=== PATIENT | male | born 1965 | race Caucasian/White ===

== ENCOUNTER 2019-03-11 11:16 | Outpatient (REF) | payer BC, SELFPAY ==
[2019-03-11 12:54] LABS: HCT 45.4 % (40.0-50.0); HGB 15.4 g/dL (13.5-17.5); Mean Corp. HGB Concentration 33.9 g/dL (32.0-36.0); Mean Corpuscular Volume 88.5 fL (80-95); Mean Platelet Volume 10.4 fL (8.0-11.0); Platelet Count 219 x1000/uL (130-400); RBC 5.13 m/cumm (4.50-6.00); RBC Distribution Width 12.6 % (11.8-14.1); White Blood Cell Count 9.45 k/cumm (4.4-10.8)
[2019-03-11 13:06] LABS: ALT 44 U/L (12-78); AST 22 U/L (15-37); Albumin 3.9 g/dL (3.4-5.0); Alkaline Phosphatase 102 U/L (46-116); Anion Gap 8.6 mmol/L (3-11); BUN 12 mg/dL (7-18); Bilirubin, Total 0.7 mg/dL (0.2-1.0); CO2 27.4 mmol/L (21.0-32.0); CREATININE 0.86 mg/dL (0.70-1.30); Calcium 9.1 mg/dL (8.5-10.1); Calculated LDL 130 mg/dL; Chloride 105 mmol/L (98-107); Cholesterol 200 mg/dL (50-200); Glucose 96 mg/dL (70-100); HDL Cholesterol 38 mg/dL (40-60); Sodium 141 mmol/L (136-145); Total Protein 7.1 g/dL (6.4-8.2); Triglyceride 160 mg/dL (30-150)
== END 2019-03-11 11:36 ==
LOC: NCHCN 11:16
PROVIDERS: PCP Family Medicine; Visit Provider Family Medicine
DX: Z00.00 Encounter for general adult medical examination without abnormal findings (principal); Z13.220 Encounter for screening for lipoid disorders; K76.0 Fatty (change of) liver, not elsewhere classified; R10.9 Unspecified abdominal pain
CPT/HCPCS: 80053; 80061; 83721; 85027

== ENCOUNTER 2019-03-12 14:12 | Outpatient (CLI) | payer BC, SELFPAY ==
--- NOTE | 2019-03-12 14:00 | DI.US_ITS ---
SYMPTOMS/DIAGNOSIS: INGUINAL PAIN, PAIN AFTER LIFTING, LEFT GREATER THAN RIGHT, LEFT LOWER QUADRANT ABOUT MID ABDOMINAL/LEFT INGUINAL AREA, NO CLEAR HERNIA ON EXAM LIMITED ABDOMINAL ULTRASOUND: Limited ultrasound was performed in the left inguinal region to evaluate suspected possible hernia. There is no evidence of an abdominal hernia by ultrasound criteria. If there is a high clinical suspicion of hernia, additional evaluation with CT could be considered. I would note that a previous CT of 07/24/17 showed no evidence of an inguinal hernia.
== END 2019-03-12 14:32 ==
PROVIDERS: PCP Family Medicine; Visit Provider Family Medicine
DX: R10.32 Left lower quadrant pain (principal)
CPT/HCPCS: 76857

== ENCOUNTER 2023-02-26 14:54 | Outpatient (REF) | payer BC, SELFPAY ==
[2023-02-26 22:55] LABS: HCT 45.2 % (40.0-50.0); HGB 14.9 g/dL (13.5-17.5); MCH 29.5 pg (27.0-33.0); MCV 90 fL (80-95); MPV 10.2 fL (8.0-11.0); Platelet Count 242 10^3/uL (130-400); RBC 5.05 10^6/uL (4.36-5.78); RDW 12.5 % (11.8-14.1); RDW-SD 41.2 fL; WBC 10.82 10^3/uL (4.4-10.8)
[2023-02-26 23:07] LABS: ALT 42 U/L (16-63); AST 23 U/L (15-37); Albumin 4.1 g/dL (3.4-5.0); Alkaline Phosphatase 101 U/L (46-116); Anion Gap 9.5 mmol/L (3-11); BUN 15 mg/dL (7-18); Bilirubin, Total 0.5 mg/dL (0.2-1.0); CO2 28.5 mmol/L (21.0-32.0); CREATININE 0.9 mg/dL (0.70-1.30); Calcium 9.1 mg/dL (8.5-10.1); Calculated LDL 155 mg/dL (<100); Chloride 104 mmol/L (98-107); Cholesterol 223 mg/dL (<200); Estimated GFR 99.62 (mL/min/1.73m2); Glucose 93 mg/dL (74-106); HDL Cholesterol 44 mg/dL (40-60); Potassium 4.4 mmol/L (3.5-5.1); Sodium 142 mmol/L (136-145); Total Protein 7.5 g/dL (6.4-8.2); Triglyceride 122 mg/dL (<150)
[2023-02-26 23:20] LABS: Hemoglobin A1C 5.9 % (<5.7)
== END 2023-02-26 14:55 | disposition home or self-care (01) ==
LOC: LBN 14:54
PROVIDERS: PCP Family Medicine; Visit Provider Family Medicine
DX: Z00.00 Encounter for general adult medical examination without abnormal findings (principal); R03.0 Elevated blood-pressure reading, without diagnosis of hypertension; K76.0 Fatty (change of) liver, not elsewhere classified
CPT/HCPCS: 80053; 80061; 85027; 83036; 84443

== ENCOUNTER 2024-04-07 18:32 | Outpatient (REF) | payer BC, SELFPAY ==
[2024-04-07 17:26] LABS: ALT 36 U/L (16-63); AST 17 U/L (15-37); Albumin 3.8 g/dL (3.4-5.0); Alkaline Phosphatase 124 U/L (46-116); Anion Gap 8.5 mmol/L (3-11); BUN 14 mg/dL (7-18); Bilirubin, Total 0.64 mg/dL (0.2-1.0); CO2 28.5 mmol/L (21.0-32.0); CREATININE 0.9 mg/dL (0.70-1.30); Calculated LDL 135 mg/dL (<100); Chloride 105 mmol/L (98-107); Cholesterol 200 mg/dL (<200); Glucose 107 mg/dL (74-106); HDL Cholesterol 53 mg/dL (40-60); Potassium 4.1 mmol/L (3.5-5.1); Sodium 142 mmol/L (136-145); Total Protein 6.8 g/dL (6.4-8.2); Triglyceride 64 mg/dL (<150)
[2024-04-07 22:29] LABS: PSA, Screening 0.3 ng/mL (<=3.5)
[2024-04-08 18:19] LABS: Hemoglobin A1C 5.8 % (<5.7)
== END 2024-04-07 18:33 | disposition home or self-care (01) ==
LOC: NCHCN 18:32
PROVIDERS: PCP Family Medicine; Visit Provider Physician Assistant
DX: E78.5 Hyperlipidemia, unspecified (principal); R73.03 Prediabetes; I10 Essential (primary) hypertension; Z12.5 Encounter for screening for malignant neoplasm of prostate
CPT/HCPCS: 80053; 80061; 84153; 83036

== ENCOUNTER 2024-07-29 05:15 | Emergency (ER) | payer BC, SELFPAY ==
[2024-07-29] VITALS (19 sets, daily range): BP systolic 137–169; BP diastolic 87–110; PULSE 96–105; RESP 16–18; TEMP 36.6; O2SAT 93–97
--- NOTE | 2024-07-29 05:15 | RT.EKG_ITS ---
APPROVED REPORT Exam: Resting ECG Reason for Exam: syncope Patient Location: E HR:102 bpm ECG Measurements Heart Rate 102 AXIS GA 142 P 71 QRSd 87 QRS 59 QT 327 T 45 QTc 425 Conclusion Sinus tachycardia...rate> 99 Low voltage, extremity leads...all extremity leads <0.5mV I have reviewed and interpreted ECG and agree with software generated interpretation.
--- NOTE | 2024-07-29 05:15 | DI.CT_ITS ---
Exam(s) CT HEAD CERVICAL SPINE WO EXAM: CT HEAD CERVICAL SPINE WO CLINICAL HISTORY: fall, hit posterior head, +LOC. TECHNIQUE: Imaging Protocol: Axial computed tomography images with coronal and sagittal reformatted images were created and reviewed COMPARISON: No exams were available for comparison FINDINGS: The examination is limited due to patient motion artifact. CT Head: Ventricles and Extra axial spaces: Normal in size and morphology for the patient's age. Hemorrhage: None. Cerebral parenchyma: No acute territorial infarct is present. There is no mass effect. Midline shift: None. Brainstem/Cerebellum: Normal. Calvarium: Normal. Visualized Paranasal sinuses/Mastoids: There is mucosal thickening in the right maxillary sinus. The re is opacification of a few ethmoid air cells. The remaining visualized paranasal sinuses and masto id air cells are clear. No air-fluid levels are present. Soft Tissues: There is mild soft tissue swelling overlying the left occipital bone. CT Cervical Spine: The C7-T1 junction was not included on the CT scan of the cervical spine. Bones: No acute fracture or subluxation. Age-appropriate mild degenerative changes are seen throughou t the cervical spine. Soft Tissues: Unremarkable. IMPRESSION: 1. No acute intracranial process. 2. No acute fracture or subluxation in the visualized cervical spine. RADIATION DOSE DELIVERED: 1,189.07mGy.cm Total DLP DATA REPOSITORY: All CT scans at this facility are submitted to the National Radiology Data Registry (NRDR) Dose Index Registry (DIR) with the [employer] (A[employer]). RADIATION OPTIMIZATION: All CT scans at this facility use at least one of these dose optimization te chniques: automated exposure control; mA and/or kV adjustment per patient size (includes targeted exa ms where dose is matched to clinical indication); or iterative reconstruction.
--- NOTE | 2024-07-29 05:15 | DI.CT_ITS ---
Exam(s) CT CHEST W CT THORACIC SPINE RECONS EXAM: CT CHEST W and CT thoracic spine recons CLINICAL HISTORY: fall, hit posterior upper chest TECHNIQUE: Imaging Protocol: Axial computed tomography images with coronal and sagittal reformatted images were created and reviewed. Computer aided detection (CAD) was utilized. CONTRAST MATERIAL: Intravenous: Omnipaque 350Contrast volume:70 mL. COMPARISON: CT ABD PELVIS WITH CONTRAST from 07/24/2017 FINDINGS: Tracheobronchial tree: Patent where visualized. No evidence of bronchiectasis. Pulmonary parenchyma: No consolidation or dominant measurable mass. Mild paraseptal emphysematous shama nges are present. Mediastinum and Tabby: No dominant adenopathy or fluid collection. The esophagus is unremarkable. Thyroid gland: Unremarkable. Pleura: No effusion or pneumothorax. Heart: The heart is not dilated. Mild single-vessel coronary artery calcification is present. No per icardial effusion. Aorta: Thoracic aorta non-dilated. There is no evidence of dissection. Mild atherosclerotic calcific ation is present. Pulmonary arteries: Due to the timing of the bolus, pulmonary artery opacification is suboptimal. No large central pulmonary embolism is present. Upper abdomen: There is stable nodularity of the left adrenal gland. No follow-up is recommended. Lymph nodes: Within normal limits. Bones: Within normal limits for the patient's age. No displaced rib fractures are identified. Soft tissues: Unremarkable. Thoracic spine recons: The C7-T1 junction is unremarkable. No acute fracture or subluxation is prese nt. IMPRESSION: 1. No acute pulmonary process. 2. No acute fracture or subluxation in the thoracic spine. 3. The C7-T1 junction is unremarkable. RADIATION DOSE DELIVERED: 251.2mGy.cm Total DLP DATA REPOSITORY: All CT scans at this facility are submitted to the National Radiology Data Registry (NRDR) Dose Index Registry (DIR) with the [employer] (ACR). RADIATION OPTIMIZATION: All CT scans at this facility use at least one of these dose optimization te chniques: automated exposure control; mA and/or kV adjustment per patient size (includes targeted exa ms where dose is matched to clinical indication); or iterative reconstruction.
[2024-07-29 05:45] LABS: Abs Immature Grans 0.05 10^3/uL (0.0-0.06); Absolute Basophil Count 0.08 10^3/uL (0.0-0.2); Absolute Eosinophil Count 0.27 10^3/uL (0.0-0.7); Absolute Lymphocyte Count 2.51 10^3/uL (1.2-3.4); Absolute Neutrophil Count 8.96 10^3/uL (1.2-6.7); Basophils % 0.6 %; Eosinophils % 2.1 %; HCT 45.4 % (40.0-50.0); HGB 14.7 g/dL (13.5-17.5); Immature Grans % 0.4 %; Lymphocytes % 19.5 %; MCH 29.4 pg (27.0-33.0); MCHC 32.4 % (32.0-36.0); MCV 91 fL (80-95); MPV 9.3 fL (8.0-11.0); Monocytes % 7.8 %; Neutrophils % 69.6 %; Platelet Count 223 10^3/uL (130-400); RDW 12.3 % (11.8-14.1); RDW-SD 40.6 fL; WBC 12.88 10^3/uL (4.4-10.8)
[2024-07-29] MEDS: Omnipaque 350 MG/ML 100 ML BTL IJ (05:48)
[2024-07-29] MEDS: Normal Saline Flush 10 ML SYR IVP (05:49)
[2024-07-29] MEDS: Normal Saline - Diluent 50 ML VIAL IJ (05:49)
[2024-07-29 05:59] LABS: PTT Activated 24.3 sec (23.6-32.8); Prothrombin Time 9.9 sec (9.1-11.1)
[2024-07-29 06:10] LABS: ALT 33 U/L (16-63); AST 19 U/L (15-37); Albumin 3.7 g/dL (3.4-5.0); Alkaline Phosphatase 135 U/L (46-116); Anion Gap 9.8 mmol/L (3-11); BUN 15 mg/dL (7-18); Bilirubin, Total 0.54 mg/dL (0.2-1.0); CO2 29.2 mmol/L (21.0-32.0); CREATININE 1.1 mg/dL (0.70-1.30); Calcium 8.5 mg/dL (8.5-10.1); Chloride 105 mmol/L (98-107); Estimated GFR 77.81 (mL/min/1.73m2); Glucose 115 mg/dL (74-106); Potassium 3.9 mmol/L (3.5-5.1); Sodium 144 mmol/L (136-145); TSH (W/Ref FT4) 1.76 uIU/mL (0.36-3.74); Total Protein 7.3 g/dL (6.4-8.2); Troponin I 14 ng/L (<or=76)
--- NOTE | 2024-07-29 06:15 | W.ED.GENAD ---
Discharge Plan Disposition Patient Disposition: Home Condition: Good Discharge Details Chief Complaint: Dizzy/Sync Clinical Impression: Chronic cough, Syncope, Scalp contusion, Back contusion Primary Care Provider: Cayla Elena ED Provider: Luis Ac Home Meds and New Rx's Prescriptions: No Action No Known Home Meds Discharge Instructions Instructions: Syncope (fainting) Additional Instructions: At this time your workup shows no evidence of bleed in your brain, rib fractures pneumonia or other significant abnormality. Please take the Symbicort inhaler and use 2 puffs every 12 hours for the next 1 to 2 weeks. Please take 10 mg of hcxz-pit-ntoleuz loratadine to help with your nasal congestion. If you notice any worsening of your symptoms, or any new symptoms such as vomiting, diarrhea, fever, chills, shortness of breath, chest pain, numbness, weakness, or fainting , please return immediately to the emergency department for reevaluation. Please follow up with your primary care provider as soon as possible for reassessment and reevaluation. As always, it was a pleasure participating in your medical care today. Referrals: Cayla Elena MD [Primary Care Provider] - [facility] General Date/Time Provider Initiated Documentation: 07/29/24 05:17. [facility] Narrative: This is a pleasant 58-year-old male who denies any significant past medical history however he does not see a doctor regularly, who was just up until recently a tobacco user, presents today for evaluation after fall. Patient states that for the last few weeks he has had a persistent cough. He states that it is getting better, but his family feels otherwise. Patient states that tonight he got up out of bed to go to the bathroom, and while getting up to go to the bathroom he had a notable coughing fit, this caused an episode of syncope and he fell back and hit his back in the back of his head. He woke up on the ground. was able to come to his assistance and denies any seizure-like activity. Because of the event, the patient came to the ER for further assessment. He is not on any blood thinners. He does admit to a headache. He denies any vision changes, fever or chills. He denies any numbness tingling or weakness. No other complaints at this time. Related Data Home Medications ?Medication ?Instructions ?Recorded ?Confirmed Unknown [No Known Home Meds] 07/29/24 07/29/24 Allergies Allergy/AdvReac Type Severity Reaction Status Date / Time No Known Allergies Allergy Unverified 07/29/24 05:24 General Stated Complaint: Dizzy/Sync MARY: 3 Review of Systems All systems reviewed & are unremarkable except as noted in HPI and below Exam Narrative Exam Narrative: 1.Const: Well-nourished, Well-developed, appearing stated age 2.Eyes: PERRL, no conjunctival injection, and symmetrical lids. 3.ENT: Atraumatic external nose and ears. Moist MM. Neck: Symmetric, trachea midline, No thyromegaly. There is no evidence of raccoon eyes, ho sign, CSF rhinorrhea, mastoid tenderness, cranial crepitus, hemotympanum, exophthalmos, or hyphema. Patient demonstrates intact dentition with no signs of tooth avulsion or fracture, no signs of jaw deformity, no evidence of a LeFort's fracture, with an intact palate, nose and orbital region. There is no evidence of a nasal septal hematoma. No proptosis. Jaw closes symmetrically. Airway is clear. Mild tenderness to the posterior aspect of the scalp. 4.CVS: +S1/S2, Peripheral pulses 2+ and equal in all extremities. Brisk capillary refill in all extremities. 5.RESP: Unlabored respiratory effort. Clear to auscultation bilaterally. No wheezes rales or rhonchi 6.GI: Soft, Nontender/Nondistended, No hepatosplenomegaly. No guarding or rebound. 7.MSK: Normocephalic Extremities w/o deformity or ttp No cyanosis or clubbing, Normal movement of all extremities. Bruising is noted over the right upper back. No midline cervical thoracic or lumbar spine tenderness. 8.Skin: Warm, Dry. No rashes or lesions. Bruising is present over the patient's right upper back. Mild tenderness to these areas. 9.Neuro: painter aircraft II-XII grossly intact. Sensation grossly intact, no focal neurologic deficits. All 6 cardinal planes of vision are fully intact. No evidence of rotatory or vertical nystagmus. The patient demonstrated a normal mfpysf-rmom-jfmoyy, good dexterity. There was no evidence of dysdiadochokinesia. Patient was able to ambulate without difficulty. There was no wide-based gait. Romberg testing was normal. Rmea-gz-fbfx testing was normal. Sensation was intact bilaterally as well as muscle strength bilaterally for all extremities. Patient was able to verbalize butter cup with no slurring, or miss pronunciation. 10.Psych: (AAO) x3. Appropriate mood and affect Course Vital Signs Vital signs: Vital Signs Temperature 36.6 C 07/29/24 05:18 Pulse 105 H 07/29/24 05:18 Respiratory Rate 18 07/29/24 05:18 Blood Pressure 169/110 H 07/29/24 05:18 Pulse Oximetry 96 07/29/24 05:18 Temperature 36.6 C 07/29/24 05:18 Temperature Source Temporal Artery Scan 07/29/24 05:18 Pulse 98 H 07/29/24 05:38 Respiratory Rate 18 07/29/24 05:22 Respiratory Effort Normal 07/29/24 05:22 Respiratory Depth Normal 07/29/24 05:22 Respiratory Pattern Normal 07/29/24 05:22 Blood Pressure 155/105 H 07/29/24 05:38 Blood Pressure Mean 122 07/29/24 05:38 Pulse Oximetry 96 07/29/24 05:38 Oxygen Delivery Method Room Air 07/29/24 05:18 Oxygen Flow Rate 0 07/29/24 05:18 Lab/Test Results Lab/Test Results: Laboratory Tests Range/Units 07/29/24 05:36 WBC (4.4-10.8) 10^3/uL 12.88 H RBC (4.36-5.78) 10^6/uL 5.00 Hgb (13.5-17.5) g/dL 14.7 Hct (40.0-50.0) % 45.4 MCV (80-95) fL 91 MCH (27.0-33.0) pg 29.4 MCHC (32.0-36.0) % 32.4 RDW (11.8-14.1) % 12.3 Plt Count (130-400) 10^3/uL 223 MPV (8.0-11.0) fL 9.3 Immature Gran % % 0.4 Neutrophils % % 69.6 Lymphocytes % % 19.5 Monocytes % % 7.8 Eosinophils % % 2.1 Basophils % % 0.6 Nucleated RBC % (0.0-0.3) % 0.0 Absolute Neutrophils (1.2-6.7) 10^3/uL 8.96 H Absolute Lymphocytes (1.2-3.4) 10^3/uL 2.51 Absolute Monocytes (0.1-0.8) 10^3/uL 1.00 H Absolute Eosinophils (0.0-0.7) 10^3/uL 0.27 Absolute Basophils (0.0-0.2) 10^3/uL 0.08 PT (9.1-11.1) sec 9.9 INR (0.9-1.1) 1.0 APTT (23.6-32.8) sec 24.3 Sodium (136-145) mmol/L 144 Potassium (3.5-5.1) mmol/L 3.9 Chloride (98-107) mmol/L 105 Carbon Dioxide (21.0-32.0) mmol/L 29.2 Anion Gap (3-11) mmol/L 9.8 BUN (7-18) mg/dL 15 Creatinine (0.70-1.30) mg/dL 1.1 Est GFR (CKD-EPI 2020) (mL/min/1.73m2) 77.81 Glucose (74-106) mg/dL 115 H Calcium (8.5-10.1) mg/dL 8.5 Total Bilirubin (0.2-1.0) mg/dL 0.54 AST (15-37) U/L 19 ALT (16-63) U/L 33 Alkaline Phosphatase (46-116) U/L 135 H Troponin I (<or=76) ng/L 14 Total Protein (6.4-8.2) g/dL 7.3 Albumin (3.4-5.0) g/dL 3.7 TSH (0.36-3.74) uIU/mL 1.76 Medical Decision Making This is a pleasant 58-year-old male who denies any significant past medical history however he does not see a doctor regularly, who was just up until recently a tobacco user, presents today for evaluation after fall. Patient states that for the last few weeks he has had a persistent cough. He states that it is getting better, but his family feels otherwise. Patient states that tonight he got up out of bed to go to the bathroom, and while getting up to go to the bathroom he had a notable coughing fit, this caused an episode of syncope and he fell back and hit his back in the back of his head. He woke up on the ground. was able to come to his assistance and denies any seizure-like activity. Because of the event, the patient came to the ER for further assessment. He is not on any blood thinners. He does admit to a headache. He denies any vision changes, fever or chills. He denies any numbness tingling or weakness. No other complaints at this time. Exam demonstrates well-appearing male, notable bruising is noted over the right shoulder and back, but no midline cervical thoracic or lumbar spine tenderness. Mild tenderness on the posterior aspect of the patient's scalp. No other neurologic deficits or signs of trauma. Lungs are clear to auscultation. Will evaluate for trauma to the head neck and chest. Will get CT imaging. Will evaluate for infectious etiology with the CT imaging as well. I suspect the patient had a vagal event with his coughing and having just gotten out of bed, however we will get a troponin and evaluate for electrolyte or thyroid abnormalities that could have caused this episode. Will monitor closely and reassess. EKG shows no evidence of STEMI. 7:41 AM Laboratory workup has returned relatively unremarkable. Troponin normal. TSH function normal. Electrolytes normal. Patient low risk on [place] syncope rule. Patient feels well clinically, and he has remained hemodynamically stable. CT imaging of the head neck chest and thoracic spine is negative for acute process. Patient stable for discharge. No evidence of pneumonia on CT imaging. With the patient's persistent cough, I suspect there may be a component of postnasal drip, or potential bronchospasm. Will give Symbicort inhaler for home use, recommend loratadine for decreasing congestion and postnasal drip. Discussed red flags for which to return. I have extensively reviewed the treatment plan and discharge instructions with the patient and their family. I have addressed all patient concerns at this time. The patient and family was made aware of what symptoms to monitor for that would warrant a return to the emergency department. Discussed the plan with the patient and family, they demonstrate verbal understanding and agreement with our assessment and plan at this time. The documentation in this chart was dictated using [employer] dictation software. Please excuse any dictation errors. FINDINGS: Brain: Normal. No hemorrhage. Unremarkable white matter. No mass effect. Cerebral ventricles: No ventriculomegaly. Paranasal sinuses: Visualized sinuses are unremarkable. No fluid levels. Mastoid air cells: Visualized mastoid air cells are well aerated. Bones: Unremarkable. No acute fracture. Soft tissues: Unremarkable. IMPRESSION: No acute intracranial abnormality. FINDINGS: Bones: No acute fracture. Normal alignment. No significant disc bulge or herniation. No severe spinal canal stenosis. No significant neural foraminal narrowing. Lungs: Lung apices are normal. Soft tissues: Unremarkable. IMPRESSION: No acute findings. Thank you for allowing us to participate in the care of your patient. Dictated and Authenticated by: Surinder Tinoco MD 07/29/2024 6:31 AM Eastern Time ([place] & [place]) FINDINGS: No axillary or mediastinal lymphadenopathy. No pleural or pericardial effusions. No pneumothorax. No focal pulmonary consolidation. No suspicious pulmonary mass. No obvious rib or sternal fracture. CT thoracic spine performed and reported separately. Please refer to that report. IMPRESSION: No acute intrathoracic abnormality identified. Thank you for allowing us to participate in the care of FINDINGS: No acute fracture of the thoracic spine is identified. No traumatic subluxation or pathologic disc space widening. No obvious bony stenosis of the thoracic spinal canal. Cervical spine CT performed and reported separately. Please refer to that report for findings related to the cervical spine. IMPRESSION: No obvious acute abnormality of the thoracic spine. Thank you for allowing us to participate in the care of your patient. Dictated and Authenticated by: Desmond Barnett MD 07/29/2024 7:31 AM Eastern Time ([place] & [place]) Quality:SDOH Health Related Social Needs: No Data to Display PFSH All Active Problems (Updated 07/29/24 @ 07:45 by Luis Ac DO) Back contusion (Acute) Scalp contusion (Acute) Syncope (Chronic) Chronic cough (Acute) Social History Smoking/Tobacco Use Status: Former Tobacco Use Smoking risk assessment performed?: Yes Alcohol Intake: current Alcohol Intake frequency: a few times a month Substance use type: does not use
--- NOTE | 2024-07-29 06:32 | DI.VRAD_ITS ---
PROCEDURE INFORMATION: Exam: CT Head Without Contrast Exam date and time: 07/29/2024 5:46 AM Age: 58 years old Clinical indication: Injury or trauma; Blunt trauma (contusions or hematomas); With loss of consciousness; Not specified; Injury date: 07/29/24; Injury details: Fall w loc, hit posterior head TECHNIQUE: Imaging protocol: Computed tomography of the head without contrast. Radiation optimization: All CT scans at this facility use at least one of these dose optimization techniques: automated exposure control; mA and/or kV adjustment per patient size (includes targeted exams where dose is matched to clinical indication); or iterative reconstruction. COMPARISON: No relevant prior studies available. FINDINGS: Brain: Normal. No hemorrhage. Unremarkable white matter. No mass effect. Cerebral ventricles: No ventriculomegaly. Paranasal sinuses: Visualized sinuses are unremarkable. No fluid levels. Mastoid air cells: Visualized mastoid air cells are well aerated. Bones: Unremarkable. No acute fracture. Soft tissues: Unremarkable. IMPRESSION: No acute intracranial abnormality. PROCEDURE INFORMATION: Exam: CT Cervical Spine Without Contrast Exam date and time: 07/29/2024 5:46 AM Age: 58 years old Clinical indication: Injury or trauma; Blunt trauma (contusions or hematomas); With loss of consciousness; Not specified; Injury date: 07/29/24; Injury details: Fall w loc, hit posterior head TECHNIQUE: Imaging protocol: Computed tomography of the cervical spine without contrast. Radiation optimization: All CT scans at this facility use at least one of these dose optimization techniques: automated exposure control; mA and/or kV adjustment per patient size (includes targeted exams where dose is matched to clinical indication); or iterative reconstruction. COMPARISON: US THYROID ULTRASOUND 08/30/2017 2:21 PM FINDINGS: Bones: No acute fracture. Normal alignment. No significant disc bulge or herniation. No severe spinal canal stenosis. No significant neural foraminal narrowing. Lungs: Lung apices are normal. Soft tissues: Unremarkable. IMPRESSION: No acute findings. Dictated and Authenticated by: Surinder Tinoco MD. Ordering:CHRISTOPHER Smith MD
[2024-07-29 07:04] LABS: Troponin I 12 ng/L (<or=76)
--- NOTE | 2024-07-29 07:28 | DI.VRAD_ITS ---
Addendum created by Desmond Barnett MD on 07/29/2024 7:43:40 AM EST: Addendum: Incidental note of left adrenal thickening compatible with hyperplasia or adenoma. Initial report created on 07/29/2024 7:27:30 AM EST: PROCEDURE INFORMATION: Exam: CT Chest With Contrast; Diagnostic Exam date and time: 07/29/2024 6:04 AM Age: 58 years old Clinical indication: Injury or trauma; Blunt trauma (contusions or hematomas); Injury date: 07/29/24; Injury details: Fall, hit posterior upper chest TECHNIQUE: Imaging protocol: Diagnostic computed tomography of the chest with contrast. 3D rendering (Not supervised by radiologist): MIP and/or 3D reconstructed images were created by the technologist. Radiation optimization: All CT scans at this facility use at least one of these dose optimization techniques: automated exposure control; mA and/or kV adjustment per patient size (includes targeted exams where dose is matched to clinical indication); or iterative reconstruction. Contrast material: OMNIPAQUE 350; Contrast volume: 70 ml; Contrast route: INTRAVENOUS (IV); COMPARISON: No prior relevant exams for comparison. FINDINGS: No axillary or mediastinal lymphadenopathy. No pleural or pericardial effusions. No pneumothorax. No focal pulmonary consolidation. No suspicious pulmonary mass. No obvious rib or sternal fracture. CT thoracic spine performed and reported separately. Please refer to that report. IMPRESSION: No acute intrathoracic abnormality identified. Dictated and Authenticated by: Desmond Barnett MD. Ordering:CHRISTOPHER Smith MD
--- NOTE | 2024-07-29 07:32 | DI.VRAD_ITS ---
PROCEDURE INFORMATION: Exam: CT Thoracic Spine Without Contrast Exam date and time: 07/29/2024 6:04 AM Age: 58 years old Clinical indication: Injury or trauma; Blunt trauma (contusions or hematomas); Injury date: 07/29/24; Injury details: Fall, hit midline t-spine TECHNIQUE: Imaging protocol: Computed tomography of the thoracic spine without contrast. Radiation optimization: All CT scans at this facility use at least one of these dose optimization techniques: automated exposure control; mA and/or kV adjustment per patient size (includes targeted exams where dose is matched to clinical indication); or iterative reconstruction. COMPARISON: CT CHEST W 07/29/2024 6:04 AM FINDINGS: No acute fracture of the thoracic spine is identified. No traumatic subluxation or pathologic disc space widening. No obvious bony stenosis of the thoracic spinal canal. Cervical spine CT performed and reported separately. Please refer to that report for findings related to the cervical spine. IMPRESSION: No obvious acute abnormality of the thoracic spine. Dictated and Authenticated by: Desmond Barnett MD. Ordering:CHRISTOPHER Smith MD
[2024-07-29] MEDS: Budesonide/Formoterol 160/4.5 6 GM 60 PUFF INH IH (08:01)
== END 2024-07-29 08:15 | disposition home or self-care (01) ==
PROVIDERS: Emergency Provider Student in an Organized Health Care Education/Training Program; PCP Family Medicine
DX: R55 Syncope and collapse (principal); R05.3 Chronic cough; S00.03XA Contusion of scalp, initial encounter; S20.221A Contusion of right back wall of thorax, initial encounter; W18.39XA Other fall on same level, initial encounter; R09.81 Nasal congestion
CPT/HCPCS: 36415; 80053; 93005; 99285; 70450; 71260; 72125; 84443; 84484; 85025; 85610; 85730; 93010; 99284; J3490

== ENCOUNTER 2025-03-31 14:05 | Outpatient (REF) | payer BC, SELFPAY ==
[2025-03-31 21:26] LABS: HCT 45.3 % (40.0-50.0); HGB 14.6 g/dL (13.5-17.5); MCH 29.4 pg (27.0-33.0); MCHC 32.2 % (32.0-36.0); MCV 91 fL (80-95); MPV 11.3 fL (8.0-11.0); Platelet Count 247 10^3/uL (130-400); RBC 4.97 10^6/uL (4.36-5.78); RDW 13.1 % (11.8-14.1); RDW-SD 43.1 fL; WBC 11.19 10^3/uL (4.4-10.8)
[2025-03-31 21:51] LABS: Hemoglobin A1C 5.8 % (<5.7)
[2025-03-31 23:36] LABS: ALT 40 U/L (16-63); Albumin 3.9 g/dL (3.4-5.0); Alkaline Phosphatase 126 U/L (46-116); Anion Gap 7.7 mmol/L (3-11); BUN 17 mg/dL (7-18); Bilirubin, Total 0.5 mg/dL (0.2-1.0); CO2 28.3 mmol/L (21.0-32.0); Calcium 8.9 mg/dL (8.5-10.1); Chloride 104 mmol/L (98-107); Estimated GFR 101.95 (mL/min/1.73m2); Glucose 102 mg/dL (74-106); Potassium 4.4 mmol/L (3.5-5.1); Sodium 140 mmol/L (136-145); TSH 0.97 uIU/mL (0.36-3.74); Total Protein 7.2 g/dL (6.4-8.2)
[2025-03-31 23:48] LABS: AST 22 U/L (15-37)
[2025-04-01 18:29] LABS: PSA, Screening 0.3 ng/mL (<=3.5)
== END 2025-03-31 14:06 | disposition home or self-care (01) ==
LOC: NCHCN 14:05
PROVIDERS: PCP Family Medicine; Visit Provider Physician Assistant
DX: Z12.5 Encounter for screening for malignant neoplasm of prostate (principal); R53.83 Other fatigue; R73.03 Prediabetes
CPT/HCPCS: 80053; 84153; 85027; 83036; 84439; 84443